=== PATIENT | male | born 1990 | race Caucasian/White ===

== ENCOUNTER → 2017-11-20 | Outpatient (CLI) | payer OTHER | LOC: M OUTALCOH 08:10 | DX: F12.20 Cannabis dependence, uncomplicated (principal) ==

== ENCOUNTER 2017-12-13 09:59 | Outpatient (RCR) | payer MEDICAID | END 2018-01-07 | LOC: M OUTALCOH 09:59 | DX: F12.20 Cannabis dependence, uncomplicated (principal); F17.200 Nicotine dependence, unspecified, uncomplicated; F13.20 Sedative, hypnotic or anxiolytic dependence, uncomplicated ==

== ENCOUNTER 2018-01-08 10:42 | Outpatient (RCR) | payer MEDICAID | END 2018-02-07 | LOC: M OUTALCOH 01-10 08:45 | DX: F12.20 Cannabis dependence, uncomplicated (principal); F17.200 Nicotine dependence, unspecified, uncomplicated; F13.20 Sedative, hypnotic or anxiolytic dependence, uncomplicated ==

== ENCOUNTER → 2018-01-30 | Outpatient (REF) | payer MEDICAID, MEDICARE ==
[2018-02-06 14:38] LABS: 7-Aminoclonazepam Negative (.); Alprazolam Negative (.); Chlordiazepoxide Negative (.); Clonazepam Negative (.); Desalkylflurazepam Negative (.); Diazepam 127 ng/mL (.); Flurazepam Negative (.); Lorazepam Negative (.); Midazolam Negative (.); OXYCODONE SCREEN Negative ng/mL (Cutoff:5); Temazepam Negative (.); Triazolam Negative (.)
== END ==
LOC: M LABDRAW1 12:00
DX: F12.20 Cannabis dependence, uncomplicated (principal); F13.20 Sedative, hypnotic or anxiolytic dependence, uncomplicated
CPT/HCPCS: 36415

== ENCOUNTER 2018-02-09 09:27 | Outpatient (RCR) | payer MEDICARE, MEDICAID | END 2018-03-09 | LOC: M OUTALCOH 09:27 | DX: F12.20 Cannabis dependence, uncomplicated (principal); F17.200 Nicotine dependence, unspecified, uncomplicated; F13.20 Sedative, hypnotic or anxiolytic dependence, uncomplicated | CPT/HCPCS: 90834 ==

== ENCOUNTER → 2019-01-05 | Outpatient (CLI) | payer MEDICARE, OTHER ==
[2019-01-05 14:35] LABS: HEMATOCRIT 37.4 % (42.0-52.0); MEAN CORPUSCULAR HEMOGLOBIN 30.7 pg (27.0-33.0); MEAN CORPUSCULAR HGB CONC 34.8 g/dl (32.0-36.5); MEAN CORPUSCULAR VOLUME 88.2 fl (80.0-96.0); PLATELET COUNT, AUTOMATED 208 10^3/uL (150-450); RED BLOOD COUNT 4.24 10^6/uL (4.30-6.10); WHITE BLOOD COUNT 8.3 10^3/uL (4.0-10.0)
[2019-01-05 15:05] LABS: ALBUMIN 3.6 GM/DL (3.2-5.2); ALT/SGPT 17 U/L (12-78); BILIRUBIN,TOTAL 0.4 MG/DL (0.2-1.0); BLOOD UREA NITROGEN 18 MG/DL (7-18); CALCIUM LEVEL 8.8 MG/DL (8.5-10.1); CARBON DIOXIDE LEVEL 31 MEQ/L (21-32); CHLORIDE LEVEL 102 MEQ/L (98-107); CREATININE FOR GFR 0.79 MG/DL (0.70-1.30); GLOMERULAR FILTRATION RATE > 60.0 (>60); GLUCOSE, FASTING 82 MG/DL (70-100); POTASSIUM SERUM 4.1 MEQ/L (3.5-5.1); SODIUM LEVEL 138 MEQ/L (136-145); TOTAL PROTEIN 6.6 GM/DL (6.4-8.2)
--- NOTE | 2019-01-05 16:03 | ECGEPIP ---
[facility] Test Date: 2019-01-05 Pat Name: PEG VALENTIN Department: Room: - Gender: Male [employer]: : 1990 Requested By: Hamlet Collazo Order Number: [id number] Reading MD: Mikhail Ramirez Measurements Intervals [place] Rate: 51 P: 40 WA: 150 QRS: 81 QRSD: 100 T: 47 QT: 435 QTc: 401 Interpretive Statements Sinus bradycardia Normal EKG Comparison tracing not on file Electronically Signed on 01-05-2019 16:03:15 EDT by Mikhail Ramirez
[2019-01-05 16:16] LABS: CHLAMYDIA DNA AMPLIFICATION NEGATIVE (NEGATIVE); GC DNA AMPLIFICATION NEGATIVE (NEGATIVE)
[2019-01-07 10:23] LABS: HEPATITIS B SURFACE ANTIGEN NEGATIVE (NEGATIVE)
[2019-01-07 10:51] LABS: HEPATITIS C VIRUS ABY INDEX 0.1 INDEX (<0.8); HIV 1&2 SCREEN CENTAUR NEGATIVE (NEGATIVE)
== END ==
LOC: M LAB 13:45
PROVIDERS: ATTEND Family Medicine
DX: F11.20 Opioid dependence, uncomplicated (principal); R00.1 Bradycardia, unspecified

== ENCOUNTER → 2019-02-04 | Outpatient (REF) | payer MEDICARE, OTHER | LOC: M LAB REF 16:03 → EEVIPCON 16:03 | PROVIDERS: ATTEND Nurse Practitioner Family | DX: L03.113 Cellulitis of right upper limb (principal) ==

== ENCOUNTER 2019-10-21 09:27 | Emergency (ER) | payer MEDICARE, OTHER ==
[~2019-10-21] VITALS: Ht 185.4 cm; Wt 73.1 kg
[2019-10-21 09:29] VITALS: BP 143/81
[2019-10-21] MEDS ORDERED: PARO5TAB (10:12)
[2019-10-21] MEDS ORDERED: NICO1DIS9 (10:12)
[2019-10-21] MEDS ORDERED: KETO10TAB (10:12)
[2019-10-21] MEDS ORDERED: ALBU8.5H (10:12)
[2019-10-21] MEDS ORDERED: CLON-412 (10:12)
[2019-10-21] MEDS ORDERED: CHLO125TA (10:12)
[2019-10-21] MEDS ORDERED: BUSP10TA (10:12)
[2019-10-21] MEDS ORDERED: VARE1TA (10:12)
[2019-10-21] MEDS ORDERED: PARO40TA2 (10:12)
[2019-10-21] MEDS ORDERED: PERC5TAB12 PO (10:43)
[2019-10-21] MEDS ORDERED: PERCOCET 5MG/325MG TAB PO ONE (10:45)
== END 2019-10-21 10:49 | disposition home or self-care (01) ==
LOC: M ED 09:27
DX: M75.82 Other shoulder lesions, left shoulder (principal); I10 Essential (primary) hypertension; F17.200 Nicotine dependence, unspecified, uncomplicated; Z79.899 Other long term (current) drug therapy

== ENCOUNTER 2020-10-01 18:41 | Emergency (ER) | payer OTHER ==
[~2020-10-01] VITALS: Ht 185.4 cm; Wt 59.4 kg
[~2020-10-01 18:41] MED LIST: ALBU8.5H; BUSP10TA; CHLO125TA; CLON-412; KETO10TAB; NICO1DIS9; PARO40TA2; PARO5TAB; PERC5TAB12 PO; VARE1TA
[2020-10-01 18:42] VITALS: BP 142/58
== END 2020-10-01 19:48 | disposition left against medical advice (07) ==
LOC: M ED 18:41
DX: Z53.21 Procedure and treatment not carried out due to patient leaving prior to being seen by health care provider (principal)

== ENCOUNTER → 2020-10-03 | Outpatient (REF) | payer OTHER | LOC: M LAB REF 18:39 | PROVIDERS: ATTEND Physician Assistant | DX: N39.0 Urinary tract infection, site not specified (principal) ==

== ENCOUNTER 2021-12-06 14:00 | Outpatient (RCR) | payer MEDICAID | END 2021-12-08 | LOC: M OUTALCOH 14:00 | PROVIDERS: ATTEND Psychiatry & Neurology Psychiatry | DX: F12.20 Cannabis dependence, uncomplicated (principal); F17.200 Nicotine dependence, unspecified, uncomplicated; F15.20 Other stimulant dependence, uncomplicated ==

== ENCOUNTER 2023-02-02 15:03 | Emergency (ER) | payer OTHER ==
[~2023-02-02] VITALS: Ht 185.4 cm; Wt 65.9 kg
[2023-02-02] MEDS ORDERED: BUPR1FIL (15:14)
[2023-02-02 18:51] VITALS: BP 127/84; TEMP 98.7; O2SAT 100
== END 2023-02-02 18:54 | disposition home or self-care (01) ==
LOC: M ED 15:03
DX: S93.402A Sprain of unspecified ligament of left ankle, initial encounter (principal); X50.0XXA Overexertion from strenuous movement or load, initial encounter; F17.200 Nicotine dependence, unspecified, uncomplicated; Y92.9 Unspecified place or not applicable; Y93.9 Activity, unspecified; Y99.0 Civilian activity done for income or pay; Z79.899 Other long term (current) drug therapy

== ENCOUNTER → 2023-05-06 | Outpatient (REF) | payer OTHER ==
[~2023-05-06] MED LIST changes: +BUPR1FIL
== END ==
LOC: M LAB REF 17:24
PROVIDERS: ATTEND Physician Assistant Medical
DX: Z11.3 Encounter for screening for infections with a predominantly sexual mode of transmission (principal)

== ENCOUNTER 2023-11-11 09:21 | Emergency (ER) | payer OTHER, SELFPAY ==
[~2023-11-11] VITALS: Ht 182.9 cm; Wt 63.8 kg
[2023-11-11 10:29] VITALS: BP 140/90; TEMP 98.4; O2SAT 99
== END 2023-11-11 10:33 | disposition home or self-care (01) ==
LOC: M ED 09:21
DX: S61.412A Laceration without foreign body of left hand, initial encounter (principal); W26.8XXA Contact with other sharp object(s), not elsewhere classified, initial encounter; F17.200 Nicotine dependence, unspecified, uncomplicated; F10.10 Alcohol abuse, uncomplicated; Y92.9 Unspecified place or not applicable; Y93.89 Activity, other specified; Y99.0 Civilian activity done for income or pay; Z79.899 Other long term (current) drug therapy

== ENCOUNTER 2024-04-16 03:34 | Emergency (ER) | payer SELFPAY ==
[~2024-04-16] VITALS: Ht 185.4 cm; Wt 63.6 kg
[2024-04-16 03:36] VITALS: BP 179/100; TEMP 97; O2SAT 96
[2024-04-16] MEDS: FLUORESCEIN OPHTH 1MG STRIP OD ONE (05:16)
[2024-04-16] MEDS: PROPARACAINE 0.5% OPHTH SOL 15ML OD ONE (05:16)
[2024-04-16] MEDS ORDERED: ERYT5OIN25 OS (05:25)
[2024-04-16] MEDS: ERYTHROMYCIN OPHTH OINT OS ONE (05:39)
[2024-04-16] MEDS: BOOSTRIX VACCINE (TETANUS/DIPHTH/ACEL. PERTUSSIS) 0.5ML SYR IM.IMMUN ONE (05:42)
== END 2024-04-16 05:44 | disposition home or self-care (01) ==
LOC: M ED 03:34
DX: T15.02XA Foreign body in cornea, left eye, initial encounter (principal); Z79.2 Long term (current) use of antibiotics